=== PATIENT | female | born 1965 | race African-American/Black ===

== ENCOUNTER 2016-09-09 16:11 | Emergency (ER) | payer MEDICAID ==
[~2016-09-09 16:11] MED LIST: ACET1TAB14 PO; FERR-63 PO; NAPR-217 PO
[2016-09-09] MEDS ORDERED: DIPHENHYDRAMINE 50MG CAPSULE PO ONE (19:00)
[2016-09-09 21:25] VITALS: BP 160/88
== END 2016-09-09 21:23 | disposition home or self-care (01) ==
LOC: ER 20:10
DX: L20.9 Atopic dermatitis, unspecified (principal); Z79.899 Other long term (current) drug therapy; Z90.710 Acquired absence of both cervix and uterus; Z87.891 Personal history of nicotine dependence
CPT/HCPCS: 99283; Q0163

== ENCOUNTER 2019-02-15 08:49 | Emergency (ER) | payer MEDICAID ==
[~2019-02-15] VITALS: Ht 160 cm; Wt 118.0 kg
[~2019-02-15 08:49] MED LIST changes: +NAPR-1176 PO; -NAPR-217 PO
[2019-02-15 09:48] VITALS: BP 170/97
== END 2019-02-15 09:54 | disposition home or self-care (01) ==
LOC: ER 09:04
DX: J06.9 Acute upper respiratory infection, unspecified (principal); J02.9 Acute pharyngitis, unspecified; R09.89 Other specified symptoms and signs involving the circulatory and respiratory systems; Z90.710 Acquired absence of both cervix and uterus; Z79.899 Other long term (current) drug therapy
CPT/HCPCS: 99283

== ENCOUNTER 2019-02-25 12:11 | Emergency (ER) | payer MEDICAID ==
[~2019-02-25] VITALS: Ht 160 cm; Wt 116.0 kg
[2019-02-25] MEDS ORDERED: PREDNISONE 20MG TABLET PO NR (14:40)
[2019-02-25 15:35] VITALS: BP 159/93
== END 2019-02-25 15:36 | disposition home or self-care (01) ==
LOC: ER 12:11
DX: L50.9 Urticaria, unspecified (principal); F17.210 Nicotine dependence, cigarettes, uncomplicated; Z98.890 Other specified postprocedural states
CPT/HCPCS: 99283; J7512

== ENCOUNTER 2021-03-14 06:06 | Emergency (ER) | payer MEDICAID, OTHER ==
[~2021-03-14] VITALS: Ht 160 cm; Wt 92.5 kg
[2021-03-14] MEDS ORDERED: HYDROCODONE/ACETAMINOPHEN 5/325MG TABLET PO ONE (07:15)
[2021-03-14] MEDS ORDERED: ONDANSETRON 4MG ODT PO ONE (07:15)
[2021-03-14 08:27] VITALS: BP 133/79
[2021-03-14] MEDS ORDERED: TRAM50TA3 MT (09:53)
[2021-03-14] MEDS ORDERED: T3 PO (10:08)
== END 2021-03-14 10:45 | disposition home or self-care (01) ==
LOC: ER 06:06
DX: S89.82XA Other specified injuries of left lower leg, initial encounter (principal); M54.59 Other low back pain; M25.531 Pain in right wrist; M79.641 Pain in right hand; G89.11 Acute pain due to trauma; W01.0XXA Fall on same level from slipping, tripping and stumbling without subsequent striking against object, initial encounter; Y93.89 Activity, other specified; Y92.59 Other trade areas as the place of occurrence of the external cause
CPT/HCPCS: 29125; 72100; 73110; 73562; 99284; Q0162

== ENCOUNTER 2021-05-01 03:12 | Emergency (ER) | payer MEDICAID, OTHER ==
[~2021-05-01] VITALS: Ht 160 cm; Wt 93.0 kg
[~2021-05-01 03:12] MED LIST changes: +T3 PO; +TRAM50TA3 MT
[2021-05-01 03:50] VITALS: BP 143/90
[2021-05-01] MEDS ORDERED: ACETAMINOPHEN 325MG TABLET PO ONE (04:30)
[2021-05-01] MEDS ORDERED: CARBAMIDE PEROXIDE 6.5% OTIC SOLN 15ML LEFT EAR ONE (04:45)
[2021-05-01] MEDS ORDERED: CARB15DR63 LEFT EAR (05:54)
[2021-05-01] MEDS ORDERED: IBUP-2028 MT (05:54)
== END 2021-05-01 06:45 | disposition home or self-care (01) ==
LOC: ER 03:36
DX: U07.1 COVID-19 (principal); J06.9 Acute upper respiratory infection, unspecified; H61.23 Impacted cerumen, bilateral; Z79.899 Other long term (current) drug therapy; Z98.890 Other specified postprocedural states
CPT/HCPCS: 87804; 99283; C9803; U0003; U0005

== ENCOUNTER 2021-09-16 08:09 | Emergency (ER) | payer MEDICAID ==
[~2021-09-16] VITALS: Ht 160 cm; Wt 95.0 kg
[~2021-09-16 08:09] MED LIST changes: +CARB15DR63 LEFT EAR; +IBUP-2028 MT
[2021-09-16 08:13] VITALS: BP 127/83
[2021-09-16 09:33] LABS: HEMATOCRIT. 38.7 % (36.0-48.0); HEMOGLOBIN. 12.4 g/dL (12.0-16.0); MEAN CORPUSCULAR HEMOGLOBIN 27.8 pg (28.0-32.0); MEAN CORPUSCULAR VOLUME 86.5 fL (81.0-99.0); MEAN PLATELET VOLUME 7.8 fl (7.4-10.4); PLATELET 239 x1000/uL (130-400); RED BLOOD CELL COUNT 4.47 mill/uL (4.2-5.4); RED CELL DISTRIBUTION WIDTH 13.2 % (11.6-14.6)
[2021-09-16 09:44] LABS: CHLORIDE 107 mEq/L (98-107)
[2021-09-16 10:40] LABS: PLATELET ESTIMATE NORMAL
[2021-09-16 10:44] LABS: CLARITY URINE CLEAR (CLEAR); COLOR URINE YELLOW (YELLOW); SPECIFIC GRAVITY URINE 1.015 (1.005-1.030)
[2021-09-16 10:45] LABS: KETONES URINE NEGATIVE (NEGATIVE); LEUKOCYTE ESTERASE URINE NEGATIVE (NEGATIVE); NITRITE URINE NEGATIVE (NEGATIVE); OCCULT BLOOD URINE NEGATIVE (NEGATIVE); PROTEIN URINE NEGATIVE (NEGATIVE)
== END 2021-09-16 11:14 | disposition home or self-care (01) ==
LOC: ER 08:09
DX: R53.1 Weakness (principal); R42 Dizziness and giddiness
CPT/HCPCS: 36415; 80053; 81003; 85025; 93005; 99284

== ENCOUNTER 2021-10-01 08:28 | Emergency (ER) | payer MEDICAID ==
[~2021-10-01] VITALS: Ht 162.6 cm; Wt 100.0 kg
[2021-10-01] MEDS ORDERED: IBUPROFEN 600MG TABLET PO STA (08:58)
[2021-10-01] MEDS ORDERED: ACETAMINOPHEN 325MG TABLET PO STA (08:58)
[2021-10-01 09:27] LABS: CLARITY URINE CLEAR (CLEAR); COLOR URINE YELLOW (YELLOW); KETONES URINE TRACE (NEGATIVE); LEUKOCYTE ESTERASE URINE 1+ (NEGATIVE); NITRITE URINE NEGATIVE (NEGATIVE); OCCULT BLOOD URINE TRACE (NEGATIVE); PROTEIN URINE NEGATIVE (NEGATIVE); SPECIFIC GRAVITY URINE 1.024 (1.005-1.030)
[2021-10-01 09:32] LABS: HEMATOCRIT. 36.1 % (36.0-48.0); HEMOGLOBIN. 11.8 g/dL (12.0-16.0); MEAN CORPUSCULAR HEMOGLOBIN 28.2 pg (28.0-32.0); MEAN CORPUSCULAR VOLUME 86.1 fL (81.0-99.0); MEAN PLATELET VOLUME 7.8 fl (7.4-10.4); PLATELET 221 x1000/uL (130-400); RED CELL DISTRIBUTION WIDTH 13.3 % (11.6-14.6)
[2021-10-01 09:36] LABS: CHLORIDE 108 mEq/L (98-107)
[2021-10-01 10:04] VITALS: BP 141/88
[2021-10-01 10:49] LABS: PLATELET ESTIMATE NORMAL
[2021-10-01] MEDS ORDERED: IBUP-2029 MT (11:09)
[2021-10-01] MEDS ORDERED: PSEU-207 MT (11:09)
== END 2021-10-01 11:20 | disposition home or self-care (01) ==
LOC: ER 08:28
DX: B34.9 Viral infection, unspecified (principal); J45.909 Unspecified asthma, uncomplicated; I49.9 Cardiac arrhythmia, unspecified; Z98.890 Other specified postprocedural states
CPT/HCPCS: 36415; 80053; 81003; 85025; 93005; 99284

== ENCOUNTER 2024-03-16 08:41 | Emergency (ER) | payer SELFPAY ==
[~2024-03-16] VITALS: Ht 167.6 cm; Wt 100.0 kg
[~2024-03-16 08:41] MED LIST changes: +IBUP-2029 MT; +PSEU-207 MT
[2024-03-16 08:57] VITALS: BP 144/78; RESP 18; TEMP 98.4; O2SAT 98
[2024-03-16 09:04] VITALS: PULSE 102; O2SAT 98
[2024-03-16] MEDS ORDERED: IBUP-2028 MT (09:32)
[2024-03-16] MEDS ORDERED: PRED10TA23 MT (09:32)
== END 2024-03-16 10:24 | disposition home or self-care (01) ==
LOC: ER 08:41
DX: J02.9 Acute pharyngitis, unspecified (principal); R05.9 Cough, unspecified; I10 Essential (primary) hypertension; Z90.710 Acquired absence of both cervix and uterus; Z98.890 Other specified postprocedural states; Z79.899 Other long term (current) drug therapy; Z20.822 Contact with and (suspected) exposure to COVID-19
CPT/HCPCS: 71045; 87070; 87426; 87430; 87804; 99284